=== PATIENT | male | born 1970 | race Two or more races ===

== ENCOUNTER 2020-11-29 19:39 | Emergency (ER) | payer OTHER, SELFPAY ==
--- NOTE | ~2020-11-29 | XR_ITS ---
EXAMINATION: XR FINGER, LEFT CLINICAL INFORMATION: Avulsion COMPARISON: None TECHNIQUE: 3 views of the left fifth digit. FINDINGS: Overlying bandage material obscures soft tissue detail. The bony structures appear to be intact with no evidence for acute fracture or dislocation. Old healed fracture of the distal fifth metacarpal incidentally noted. No radiopaque foreign body appreciated. XR/XR finger LT min 2V IMPRESSION: Dense bandage material overlying the distal aspect of the fifth digit. Underlying bony structures appear grossly intact.
[2020-11-29 20:14] VITALS: BP 136/75; PULSE 80; RESP 18; TEMP 36.4; O2SAT 98; BMI 36.9
--- NOTE | 2020-11-29 21:14 | ED.WOUNDLAC ---
HPI - Wound/Laceration General Chief Complaint: Wound/Laceration Stated Complaint: FINGER LAC Source: patient Mode of arrival: ambulatory Limitations: no limitations History of Present Illness HPI narrative: 50-year-old male with no significant past medical history presents with avulsion of the left 5th finger. Patient got his finger slammed in a door at work. He is able to move the extremity, and denies any other injury at this time. Onset (ago): hour(s) (Within the hour of arrival) Place: work Patient tetanus UTD: No Context: accidental Associated symptoms: pain and loss of feeling/numbness Treatments prior to arrival: bandage and tourniquet Related Data Previous Rx's Medication Instructions Recorded amoxicillin-pot clavulanate 1 tab PO Q12H 10 Days #20 tab 11/29/20 [Augmentin] hydrocodone-acetaminophen 1 tab PO Q8H PRN #14 tab 11/29/20 Allergies Allergy/AdvReac Type Severity Reaction Status Date / Time No Known Allergies Allergy Verified 11/29/20 20:14 Review of Systems Review of Systems: Constitutional: No Fever, No Chills ENT/Mouth: No Ear Pain, No Hoarseness, No sore throat Eyes: No Eye Pain, No Swelling, No Redness, No Foreign Body Cardiovascular: No Chest Pain, No SOB Respiratory: No Cough, No Dyspnea Gastrointestinal: No Nausea, No Vomiting, No Diarrhea, No abdominal Pain Genitourinary: No Dysuria, No Hematuria Musculoskeletal: positive left 5th finger pain, No Myalgias, No Joint Swelling Skin: Positive avulsion of the left 5th finger, No rash Neuro: No Weakness, No Numbness, No Paresthesias, No Loss of Consciousness, No Dizziness, No Headache Psych: No Anxiety/Panic, No Depression Heme/Lymph: no easy bruising, no Lymphadenopathy Endocrine: No Polyuria, No Polydipsia Yes all other systems are reviewed and are negative [facility] Past Medical History Attestation statement: The following information was validated with the patient. Source: old records reviewed Medical History Bradycardia Club foot Hernia Tussive syncope Social History Social History Advance Directives: No Advance Directives Information Provided: Yes Physical Exam Vital Signs: Vital Signs: Last Vital Signs Temp 97.6 F 11/29/20 20:14 Pulse 80 11/29/20 20:14 Resp 18 11/29/20 20:14 BP 136/75 11/29/20 20:14 Pulse Ox 98 11/29/20 20:14 Body Mass Index 36.9 Appearance: Alert. Oriented X3. No acute distress. Eyes: Pupils equal, round and reactive to light. ENT: Pharynx normal. Neck: Normal inspection. Neck supple. CVS: Normal heart rate and rhythm. Pulses normal. Respiratory: No respiratory distress. Breath sounds normal. Abdomen: Soft and nontender. Skin: Skin warm and dry. Normal skin color. Normal skin turgor. Extremities: Positive avulsion to the left 5th finger. Neuro: No motor deficit. No sensory deficit. Course Course Course Narrative: 50-year-old male with no significant past medical history presents with avulsion to the left 5th finger tip. Patient got his finger slammed into a door, and ripped the lateral last pad of the 5th digit of the left hand. X-rays are negative for bone involvement, we did give Ancef 1.5 g. Tdap updated today. Patient does have full range of motion to the rest of the digit. Has no sensation to the tip of the finger. Please see procedure note for digital block. Flushed with copious amounts of sterile saline. Finger tourniquet used to prevent bleeding. No blood loss. I am unable to approximate the wound margins, applied Xeroform and advised patient to follow up with work connection in 3 days for wound care. Patient verbalized understanding of and agrees to plan of care discharge home. Procedures Laceration Laceration 1: Side (If applicable): left Amount of anesthesia used (mL): 4 Nerve Block Nerve Block 1: Time out performed: Yes Local Anesthetic: lidocaine 2% Amount of anesthesia used (mL): 4 Side: left Nerve Blocks: digital Procedure Successful: Yes Patient Tolerated Procedure: well and no complications Complications: none Additional Comments: Prepped and draped in sterile fashion, irrigated with copious amounts of sterile saline. Patient tolerated procedure well. Dressed with Xeroform, sterile gauze and Jarrod wrap. MDM - Wound/Laceration Medical Records Attestation: I reviewed the patient's medical records. Imaging Data Left hand x-ray: Attestation: I personally reviewed and interpreted this imaging study as follows: Radiologist's impression: EXAMINATION: XR FINGER, LEFT CLINICAL INFORMATION: Avulsion COMPARISON: None TECHNIQUE: 3 views of the left fifth digit. FINDINGS: Overlying bandage material obscures soft tissue detail. The bony structures appear to be intact with no evidence for acute fracture or dislocation. Old healed fracture of the distal fifth metacarpal incidentally noted. No radiopaque foreign body appreciated. XR/XR finger LT min 2V IMPRESSION: Dense bandage material overlying the distal aspect of the fifth digit. Underlying bony structures appear grossly intact. Discharge Plan Discharge Clinical Impression: Avulsion of skin Patient Disposition: Home, Self-Care Instructions: Skin Avulsion (ED) Additional Instructions: You were evaluated for a significant skin avulsion to the left 5th digit. You must follow up with work connection in 3 days for wound assessment. This wound may take several weeks to heal. Do not soak the wound in water, keep the wound dressed at all times, please take antibiotics Augmentin as directed. Finish the entire course of this medication. We prescribed Vicodin for this injury. This medication is a narcotic and has high risk for addiction and abuse. Do not drive or operate machinery while taking this medication. Use Colace and/or MiraLax to help loosen stools as this medication is constipating. Thank you for choosing this emergency department for evaluation. Please follow-up with primary care physician as needed. Return to the emergency department for any new, concerning, or worsening symptoms. Prescriptions: New hydrocodone-acetaminophen 5-325 mg tablet 1 tab PO Q8H PRN (Reason: pain) Qty: 14 RF: 0 amoxicillin-pot clavulanate [Augmentin] 875-125 mg tablet 1 tab PO Q12H 10 Days Qty: 20 RF: 0 Referrals: [facility] [Provider Group] - 2 days (Wound check) Stand Alone Forms: Work/School Release Interventions: ED Discharge Assessment Last Done: 11/29/20 23:25 Discharge Date/Time: 11/29/20 23:31 Print Language: Yakut
[2020-11-29] MEDS: Diphth,Pertus(ACell),Tet Adult 0.5 ML SYRINGE IM (21:46)
[2020-11-29] MEDS: Lidocaine HCl 2 % MPF 5 ML VIAL SUBCUT (21:48)
[2020-11-29] MEDS: ceFAZolin Sodium 1.5 GM in 0.9 % Sodium Chloride 100 ML IV (22:38)
== END 2020-11-29 23:31 | disposition home or self-care (01) ==
PROVIDERS: Emergency Provider Emergency Medicine; PCP Internal Medicine
DX: S61.217A Laceration without foreign body of left little finger without damage to nail, initial encounter (principal); W23.1XXA Caught, crushed, jammed, or pinched between stationary objects, initial encounter; Y93.89 Activity, other specified; Y92.812 Truck as the place of occurrence of the external cause; Y99.0 Civilian activity done for income or pay
CPT/HCPCS: 12001; 64450; 73140; 90471; 90715; 96365; 99283; 99284; J0690

== ENCOUNTER → 2020-12-01 11:23 | Outpatient (BNVA) | payer OTHER, SELFPAY | PROVIDERS: PCP Internal Medicine; Visit Provider Physician Assistant Medical | DX: S61.307A Unspecified open wound of left little finger with damage to nail, initial encounter (principal); X58.XXXA Exposure to other specified factors, initial encounter | CPT/HCPCS: 99203 ==

== ENCOUNTER → 2020-12-05 10:55 | Outpatient (BNVA) | payer OTHER, SELFPAY | PROVIDERS: PCP Internal Medicine; Visit Provider Physician Assistant | DX: S61.307A Unspecified open wound of left little finger with damage to nail, initial encounter (principal); S61.337A Puncture wound without foreign body of left little finger with damage to nail, initial encounter; W23.0XXA Caught, crushed, jammed, or pinched between moving objects, initial encounter | CPT/HCPCS: 99202; 99214 ==

== ENCOUNTER 2020-12-07 13:38 | Outpatient (RCR) | payer OTHER, SELFPAY | END 2021-01-04 13:23 | disposition home or self-care (01) | LOC: HO.WCC 13:38 | PROVIDERS: Visit Provider Surgery | DX: S61.207D Unspecified open wound of left little finger without damage to nail, subsequent encounter (principal) | CPT/HCPCS: 99212 ==

== ENCOUNTER 2020-12-11 23:39 | Emergency (ER) | payer OTHER, SELFPAY ==
[2020-12-11 23:50] VITALS: BP 141/87; PULSE 62; RESP 17; TEMP 37; O2SAT 98; BMI 36.9
--- NOTE | 2020-12-12 00:09 | ED_ITS ---
HPI - Wound/Laceration General Chief Complaint: Wound/Laceration Stated Complaint: Wound check Time Seen by Provider: 12/12/20 00:02 Source: patient Mode of arrival: ambulatory Limitations: no limitations History of Present Illness HPI narrative: Patient has left 5th finger tip avulsion on 11/29 seen orthopedics on Augmentin comes here for a wound recheck no pus discharge no fever still complaining of pain on hydrocodone and ibuprofen Related Data Previous Rx's Medication Instructions Recorded amoxicillin-pot clavulanate 1 tab PO Q12H 10 Days #20 tab 11/29/20 [Augmentin] hydrocodone-acetaminophen 1 tab PO Q8H PRN #14 tab 11/29/20 Allergies Allergy/AdvReac Type Severity Reaction Status Date / Time No Known Allergies Allergy Verified 12/12/20 00:00 Review of Systems Review of Systems: Yes all other systems are reviewed and are negative PMFSH Past Medical History Medical History Bradycardia Club foot Hernia Tussive syncope Social History Social History Patient Tobacco Use Status: Current everyday Tobacco user Use of substances other than those prescribed or required for medical reasons: No Advance Directives: No Advance Directives Information Provided: No Current occupational status: employed 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 Healing tip of the left 5th finger with granulation tissue no pus discharge noted him a good range of movement and sensation MDM - Wound/Laceration MDM Narrative Medical decision making narrative: Patient with a healing left 5th finger skin avulsion already on antibiotics will advise patient to follow with orthopedics as scheduled Discharge Plan Discharge Clinical Impression: Avulsion of skin Patient Disposition: Home, Self-Care Instructions: Skin Avulsion (ED) Additional Instructions: Continue antibiotics and pain medication local care as advised. Follow-up with hand surgeon as scheduled Prescriptions: No Action hydrocodone-acetaminophen 5-325 mg tablet 1 tab PO Q8H PRN (Reason: pain) Qty: 14 RF: 0 amoxicillin-pot clavulanate [Augmentin] 875-125 mg tablet 1 tab PO Q12H 10 Days Qty: 20 RF: 0
== END 2020-12-12 00:45 | disposition home or self-care (01) ==
PROVIDERS: Emergency Provider Internal Medicine
DX: Z48.00 Encounter for change or removal of nonsurgical wound dressing (principal); S61.207D Unspecified open wound of left little finger without damage to nail, subsequent encounter; X58.XXXD Exposure to other specified factors, subsequent encounter
CPT/HCPCS: 99282; 99284

== ENCOUNTER → 2020-12-13 09:11 | Outpatient (BNVA) | payer OTHER, SELFPAY | PROVIDERS: Visit Provider Physician Assistant | DX: Z13.89 Encounter for screening for other disorder (principal) | CPT/HCPCS: 99212 ==

== ENCOUNTER → 2020-12-19 13:54 | Outpatient (BNVA) | payer OTHER, SELFPAY | PROVIDERS: Visit Provider Orthopaedic Surgery | DX: S61.207A Unspecified open wound of left little finger without damage to nail, initial encounter (principal) | CPT/HCPCS: 99212 ==

== ENCOUNTER → 2021-01-02 08:40 | Outpatient (BNVA) | payer OTHER, SELFPAY | PROVIDERS: Visit Provider Orthopaedic Surgery | DX: S61.207D Unspecified open wound of left little finger without damage to nail, subsequent encounter (principal) | CPT/HCPCS: 99212 ==

== ENCOUNTER → 2021-01-17 13:16 | Outpatient (BNVA) | payer OTHER, SELFPAY | PROVIDERS: Visit Provider Physician Assistant | DX: S61.207D Unspecified open wound of left little finger without damage to nail, subsequent encounter (principal) | CPT/HCPCS: 99212 ==

== ENCOUNTER → 2021-02-06 13:09 | Outpatient (BNVA) | payer OTHER, SELFPAY | PROVIDERS: PCP Plastic Surgery; Visit Provider Physician Assistant | DX: S61.207D Unspecified open wound of left little finger without damage to nail, subsequent encounter (principal) | CPT/HCPCS: 99212 ==

== ENCOUNTER 2021-03-08 11:30 | Outpatient (RCR) | payer OTHER, SELFPAY ==
--- NOTE | 2021-03-01 13:26 | MHC.OT.OEV ---
[address] [phone] F: [phone] Occupational Therapy Evaluation Diagnosis: OPEN WOUND ON LEFT LITTLE FINGER Date of Onset: 11/29/20 Attending Provider: Ramona Chow Prescribed Treatment: RONAK GIBSON Follow Up Appointment: 03/21/21 History of Current Condition: 50-year-old male presented to ER with avulsion to the left 5th finger tip. Patient got his finger slammed into a door, and ripped the lateral last pad of the 5th digit of the left hand. x-rays are negative for bone involvement. Skin graft not performed. 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 HAS PAIN WITH LIGHT OR NOXIOUS TOUCH. Sleep: MODERATE DIFFICULTIES WITH SLEEPING INCLUDING TROUBLE FALLING ASLEEP AND WAKES AT NIGHT Driving: SEVERE DIFFICULTIES WITH DRIVING, BUMP FINGER ON STEERING WHEEL Pain Assessment Pain Score: 6-10/10 Pain Scale Used: Numeric (0 - 10) Pain Location and Description: 6/10 AT REST 10/10 WITH GRIPPING, BUMPING SMALL FINGER DISTAL TIP OF L D5 Aggravating Factors: EXTREME HEAT AND COLD, LIGHT TOUCH, NOXIOUS TOUCH Alleviating Factors: IBUPROFEN Skin and Soft Tissue Assessment Skin and Soft Tissue: Wound Scar Tissue Comments: HEALED WOUND TO DISTAL SMALL FINGER WITH SCAR TISSUE Sensory Assessment Temperature: Left Impaired Light Touch: Left Impaired Proprioception: Vibration: Comments: SEMMES GIO DIMINISHED PROTECTIVE SENSATION TO DISTAL ASPECT TO DIPj OF L SMALL FINGER SOME INCONSISTENCIES WITH TESTING WITH EYES OCCLUDED, CONTINUE TO ASSESS AT F/U SESSIONS Edema Assessment Upper Extremity: WNL Lower Extremity: Comments: CIRCUMFERENCE OF DIPj OF SMALL FINGER LEFT: 5.0 CM, RIGHT 5.3 CM Dexterity Assessment Dexterity: WFL Comments: FUNCTIONAL DEXTERITY TEST LEFT 30 SECONDS, RIGHT 25 SECONDS Special Tests Comments: AROM(PROM) Strength Elbow Flexion: Extension: Pronation: Supination: Comments: WNL Flexion: Extension: Pronation: Supination: Comments: Wrist Flexion: Extension: Ulnar Deviation: Radial Deviation: Comments: WNL Flexion: Extension: Ulnar Deviation: Radial Deviation: Comments: Thumb Thumb CMC Flexion: Thumb MCP Flexion: Thumb IP Flexion: Radial Abduction: Palmar Abduction: [place] (Kapandji 0-10): 10 Comments: Digits Index MCP: PIP: DIP: Long MCP: PIP: DIP: Ring MCP: PIP: DIP: Small MCP: L 66, R 68 PIP: L 88, R 100 DIP: L 30, R 78 Comments: FULL EXTENSION IN DIPj Gross Grasp: L 60, R 110 Lateral Pinch: L 25, R 27 Two-Point Pinch: Three-Jaw Mason: Comments: GUARDING OF L SF WITH SHIPPING/RECEIVING CLERK TESTING Patient Education 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 Patient demonstrates Patient verbalizes Barriers to Learning: None Readiness for Learning: Accepting Who was educated? Patient Family/spouse Comments: Plan of Care Assessment: TAMIKO IS 13 WEEKS S/P PARTIAL DEGLOVING INJURY TO HIS LEFT SMALL FINGER. WOUND IS NOW CLOSED AND HE IS PRESENTING WITH PAIN, ROM, STRENGTH AND SENSORY LIMITATIONS. HE STATES THERE IS PAIN WITH LIGHT TOUCH AND WITH GRIPPING TASKS. 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 PATIENT WOULD BENEFIT FROM ONGOING OT TO ADDRESS AREAS MENTIONED ABOVE AND ASSESS FOR SPLINTING OPTIONS TO PROTECT DISTAL DIGIT FROM BUMPING INTO OBJECTS. STG Duration: 2 WEEKS Short Term Goals: IND HEP REPORT <4/10 PAIN AT REST AND WITH LIGHT IADLs WILL TOLERATE 10 MINS OF LIGHT TOUCH IND DESENSITIZATION STRATEGIES INCORPORATE L SF INTO DAILY ACTIVITIES WITHOUT DIFFICULTIES IND SCAR MOBILIZATION LTG Duration: 4 WEEKS Half-Way Goals: WILL TOLERATE 20 MINS OF TAPPING, DEEP TOUCH WILL LIFT >20 POUNDS WITH <4/10 PAIN USING ADAPTIVE TECHNIQUES AND PROPER BODY MECHANICS QUICK DASH <50% SHIPPING/RECEIVING CLERK STRENGTH >80 POUNDS TIP TO DPC <0.5 CM Frequency and Duration: The patient will be seen 2X/ WEEK FOR 4 WEEKS Treatment Plan: Therapeutic Exercise Therapeutic Activity Home Exercise Program Splinting Neuro Re-ed Patient Education Desensitization/Sensory Re-ed Edema Control ADL Training Ultrasound NMES Iontophoresis Paraffin Fluidotherapy MHP Cold Packs Joint Mobilization Soft Tissue Mobilization Kinesiotaping Other (see comments) Electronically Signed By: HERNANDO LUBIN/Silvio Reviewed/agree with student documentation: N/A Therapist: Please sign and return to therapist, Thank you for your referral.
--- NOTE | 2021-04-25 10:14 | MHC.OT.DC ---
[address] [phone] F: [phone] Occupational Therapy Discharge Note Provider: Ramona Chow Diagnosis: OPEN WOUND ON LEFT LITTLE FINGER Date of Evaluation: 03/01/21 Date of Discharge: 04/25/21 Treatments to Date: 2 Cancellations to Date: 4 No Shows to Date: 3 Discharge Summary: MR MCBRIDE WAS SEEN FOR TWO OUTPATIENT OT SESSIONS. AT HIS LAST APPOINTMENT HE CONT TO EXPERIENCE HYPERSENSATIVITY AND VOLAR SCAR ADHESIONS. HE HAD GOOD UNDERSTANDING OF HIS HEP, ALTHOUGH HE REMAINED GUARDED. THERE HAS BEEN A SIX (+) WEEK LAPSE IN HIS OT SESSIONS (Pt CONTRACTED COVID 19) AND WILL NEED A NEW SCRIPT FOR ADDITIONAL VISITS. D/C OT SERVICES. Electronically Signed By: MARI BROOKS OTR/L Reviewed/agree with student documentation: N/A Therapist: Please Sign and return to therapist, thank you for your referral.
== END 2021-04-25 10:10 | disposition home or self-care (01) ==
LOC: HO.OT 11:30
PROVIDERS: PCP Nurse Practitioner Primary Care; Visit Provider Physician Assistant
DX: S61.207A Unspecified open wound of left little finger without damage to nail, initial encounter (principal)
CPT/HCPCS: 97110; 97112; 97166

== ENCOUNTER 2021-03-09 19:59 | Emergency (ER) | payer OTHER, SELFPAY ==
[2021-03-09 20:06] VITALS: BP 138/84; PULSE 73; RESP 16; TEMP 36.9; O2SAT 98; BMI 38.4
[2021-03-09 21:23] LABS: Influenza A PCR NEGATIVE (Negative); Influenza B PCR NEGATIVE (Negative); Resp Syncy Virus RNA Qual PCR NEGATIVE (Negative); SARS COV2 PCR INHOUSE NEGATIVE (Negative)
--- NOTE | 2021-03-09 21:30 | ED.URI ---
HPI - URI/Sore Throat General Chief Complaint: Upper Respiratory Symptoms Stated Complaint: covid exposed - cough Time Seen by Provider: 03/09/21 21:30 Source: patient Mode of arrival: ambulatory Limitations: no limitations History of Present Illness HPI Narrative: Patient is a 50-year-old male with no significant past medical history who is here because he had a COVID exposure, his daughter was diagnosed a few days ago. He denies any symptoms except for some mild nausea which he attributes to some new medications he is taking. He is not vaccinated for COVID. He denies any cough, congestion, nausea, vomiting, diarrhea, fevers. He states he has been eating and drinking his normal amount. Related Data Home Medications Medication Instructions Recorded Confirmed ibuprofen 800 mg tablet mg PO 12/19/20 Previous Rx's Medication Instructions Recorded amoxicillin 875 mg-potassium 1 tab PO Q12H 10 Days #20 tab 11/29/20 clavulanate 125 mg tablet (Augmentin) hydrocodone 5 mg-acetaminophen 325 1 tab PO Q8H PRN #14 tab 12/13/20 mg tablet Allergies Allergy/AdvReac Type Severity Reaction Status Date / Time No Known Allergies Allergy Verified 01/02/21 09:06 Review of Systems Review of Systems: Yes all other systems are reviewed and are negative [facility] Past Medical History Medical History Bradycardia Club foot Hernia Tussive syncope Social History Social History Patient Tobacco Use Status: Current everyday Tobacco user Advance Directives: No Advance Directives Information Provided: No Current occupational status: employed 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 Physical Exam Vital Signs: Vital Signs: Last Vital Signs Temp 98.4 F 03/09/21 20:06 Pulse 73 03/09/21 20:06 Resp 16 03/09/21 20:06 BP 138/84 03/09/21 20:06 Pulse Ox 98 03/09/21 20:06 Body Mass Index 38.4 Const: General: cooperative, healthy appearing, comfortable, no acute distress and well developed Orientation/consciousness: patient oriented x3 Limitations: no limitations HENMT: Head: Yes normal to inspection Eyes: General: appearance normal, both eyes and all related structures Neck: Neck: Yes normal visual inspection and Yes full ROM Resp: Effort & Inspection: normal respiratory effort and able to speak in complete sentences Auscultation: clear to auscultation bilaterally Cardio: Rate: regular rate Rhythm: regular rhythm Heart sounds: normal S1 and S2 GI: Inspection: Yes normal to inspection Palpation (GI): Soft to palpation and nontender Skin: General skin exam: no rashes or lesions noted Neuro: General: patient oriented x3 Extrem: General: Yes normal to inspection MDM - URI/Sore Throat Lab Data Attestation: I reviewed the patient's lab results. Labs: Lab Results 03/09/21 Range/Units 20:22 Coronavirus (PCR) NEGATIVE (Negative) Influenza Type A (PCR) NEGATIVE (Negative) Influenza Type B (PCR) NEGATIVE (Negative) RSV RNA Qual (PCR) NEGATIVE (Negative) Discharge Plan Discharge Clinical Impression: At increased risk of exposure to COVID-19 virus Patient Disposition: Home, Self-Care Instructions: COVID-19 (Coronavirus Disease 2019) (ED) Additional Instructions: Today, your COVID test was negative. However, since the rest of your family have all tested positive, you will likely become positive so I would like you to quarantine until you can get 1 more negative test in 5 days. I have attached information on how to care for yourself if you do test positive for COVID. If you experience any shortness of breath, chest pain, please return to the emergency department or call 911. If you do not end up testing positive for COVID in the next 5-7 days, please be sure to get your COVID vaccination as soon as possible. Prescriptions: No Action amoxicillin-pot clavulanate [Augmentin] 875-125 mg tablet 1 tab PO Q12H 10 Days Qty: 20 RF: 0 hydrocodone-acetaminophen 5-325 mg tablet 1 tab PO Q8H PRN (Reason: pain) Qty: 14 RF: 0 ibuprofen 800 mg tablet PO RF: 0 Interventions: ED Discharge Assessment Last Done: 03/09/21 22:00 Discharge Date/Time: 03/09/21 22:00
== END 2021-03-09 22:00 | disposition home or self-care (01) ==
PROVIDERS: Emergency Provider Emergency Medicine; PCP Internal Medicine
DX: Z20.822 Contact with and (suspected) exposure to COVID-19 (principal)
CPT/HCPCS: 0241U; 36415; 99283

== ENCOUNTER 2021-03-17 14:32 | Outpatient (REF) | payer OTHER, SELFPAY ==
[2021-03-17 14:56] LABS: COVID-19 Test Positive (Negative)
== END 2021-03-17 14:33 | disposition home or self-care (01) ==
LOC: HO.LAB 14:32
PROVIDERS: PCP Internal Medicine; Visit Provider Internal Medicine
DX: Z20.822 Contact with and (suspected) exposure to COVID-19 (principal)
CPT/HCPCS: 36415; 87635; C9803

== ENCOUNTER 2021-03-31 12:25 | Outpatient (REF) | payer OTHER, SELFPAY | END 2021-03-31 12:26 | disposition home or self-care (01) | LOC: HO.LAB 12:25 | PROVIDERS: PCP Internal Medicine; Visit Provider Internal Medicine | DX: Z20.822 Contact with and (suspected) exposure to COVID-19 (principal) | CPT/HCPCS: C9803; U0003; U0005 ==

== ENCOUNTER → 2021-04-17 10:44 | Outpatient (BNVA) | payer OTHER, SELFPAY | PROVIDERS: PCP Internal Medicine; Visit Provider Physician Assistant | DX: S61.207D Unspecified open wound of left little finger without damage to nail, subsequent encounter (principal) | CPT/HCPCS: 99212 ==

== ENCOUNTER → 2021-05-02 09:35 | Outpatient (BNVA) | payer OTHER, SELFPAY | PROVIDERS: PCP Internal Medicine; Visit Provider Orthopaedic Surgery | DX: S61.207D Unspecified open wound of left little finger without damage to nail, subsequent encounter (principal) | CPT/HCPCS: 99212 ==

== ENCOUNTER 2021-06-13 09:39 | Outpatient (REF) | payer OTHER, SELFPAY ==
[2021-06-13 11:39] LABS: COVID-19 Test Negative (Negative)
== END 2021-06-13 09:40 | disposition home or self-care (01) ==
LOC: HO.LAB 09:39
PROVIDERS: Internal Medicine; PCP Internal Medicine; Visit Provider Orthopaedic Surgery
DX: Z20.822 Contact with and (suspected) exposure to COVID-19 (principal); S61.207A Unspecified open wound of left little finger without damage to nail, initial encounter; T78.40XA Allergy, unspecified, initial encounter
CPT/HCPCS: 36415; 87635; 99212; C9803

== ENCOUNTER 2021-07-12 01:35 | Emergency (ER) | payer OTHER, SELFPAY ==
[2021-07-12 01:42] VITALS: BP 152/76; PULSE 86; RESP 14; TEMP 36.9; O2SAT 95; BMI 38.4
[2021-07-12 04:24] LABS: Strep A Nucleic Acid Negative (Negative)
--- NOTE | 2021-07-12 04:24 | ED_ITS ---
HPI - General Adult General Chief complaint: General Medical Stated complaint: lump on neck Time Seen by Provider: 07/12/21 01:55 Source: patient Mode of arrival: ambulatory History of Present Illness HPI narrative: 50-year-old male, nonsmoker presents with complaints of right- sided neck discomfort when swallowing this started a 4 days ago and has not been associated with fever, chills, ear pain, difficulty breathing, chest pain/palpitations. Patient denies any dental pain. Related Data Home Medications Medication Instructions Recorded Confirmed ibuprofen 800 mg tablet mg PO 12/19/20 Previous Rx's Medication Instructions Recorded amoxicillin 875 mg-potassium 1 tab PO Q12H 10 Days #20 tab 11/29/20 clavulanate 125 mg tablet (Augmentin) hydrocodone 5 mg-acetaminophen 325 1 tab PO Q8H PRN #14 tab 12/13/20 mg tablet Allergies Allergy/AdvReac Type Severity Reaction Status Date / Time No Known Allergies Allergy Verified 04/17/21 10:54 Review of Systems Review of Systems: Pertinent positives and negatives as stated in HPI 10 point review of systems is otherwise negative. 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 GENERAL: Well developed, well nourished, in no acute distress. HEAD: Normocephalic/atraumatic EYES: PERRLA, EOMI EARS: Ext canals without abnormality, TMs non-bulging and non-erythematous NOSE: Nares patent bilateral OROPHARYNX: no oral lesions noted, posterior pharynx clear and non-erythematous without noted tonsillar enlargement/erythema/exudates, uvula is midline and there is no unilateral tonsillar pillar elevation NECK: Supple, no adenopathy, but pain at right submental on palpation LUNGS: Normal breath sounds. No adventitious sounds or accessory muscle use. SpO2<95> CARDIOVASCULAR: Regular rate and rhythm without noted murmurs, no JVD or lower extremity edema. ABDOMEN: Soft, non-tender, non-distended with bowel sounds. SKIN: Inspection of the skin reveals no rashes NEUROLOGIC: Alert and oriented x 4. Course Course Course Narrative: 50-year-old male with history and clinical presentation consistent with possible adenopathy suspect that this is viral in nature but will COVID as well as strep test him there is no airway issue and no stridor, patient is afebrile and oxygenating well on room air. Review of all investigations otherwise negative for acute findings. Suspect that patient has viral adenopathy and he was encouraged to take myhg-bua-wplcyxk medications and continue with his scheduled appointment on morning. There are no airway or esophageal concerns. Patient declined COVID testing stating that he was tested in the morning and was negative at that time and he denies being COVID-19 vaccinated. Medical Decision Making Lab Data Labs: Lab Results 07/12/21 Range/Units 04:09 S. pyogenes GrpA CHRIS Negative (Negative) Discharge Plan Discharge Clinical Impression: Adenopathy Patient Disposition: Home, Self-Care Instructions: Lymphadenopathy (ED) Additional Instructions: 1. Keep your scheduled appointment on . 2. Recommend taking [id number]-[id number] Tylenol/ibuprofen as needed for symptom relief and this is felt to primarily be viral in nature and should gradually resolve. Return to the ER for worsening symptoms. Prescriptions: No Action amoxicillin-pot clavulanate [Augmentin] 875-125 mg tablet 1 tab PO Q12H 10 Days Qty: 20 RF: 0 hydrocodone-acetaminophen 5-325 mg tablet 1 tab PO Q8H PRN (Reason: pain) Qty: 14 RF: 0 ibuprofen 800 mg tablet PO RF: 0
--- NOTE | 2021-07-12 05:05 | PC.NURSE ---
pt refused covid swab. states that he got a covid test this morning which was negative (Ariane) aware
== END 2021-07-12 05:34 | disposition home or self-care (01) ==
PROVIDERS: Emergency Provider Student in an Organized Health Care Education/Training Program
DX: R59.9 Enlarged lymph nodes, unspecified (principal); M54.2 Cervicalgia
CPT/HCPCS: 36415; 87651; 99283

== ENCOUNTER 2021-07-24 11:30 | Outpatient (RCR) | payer OTHER, SELFPAY ==
--- NOTE | 2021-05-15 13:56 | MHC.OT.OEV ---
[address] [phone] F: [phone] Occupational Therapy Evaluation Diagnosis: Left small finger laceration w/ persistent hypersensitivity Date of Onset: 11/29/20 Attending Provider: Dr Nath Prescribed Treatment: Eval and Treat, desensitization training History of Current Condition: 50-year-old male with avulsion to the left 5th finger tip 11/29/20, patient got his finger slammed into a door, and ripped the lateral last pad of the 5th digit of the left hand. X-rays are negative for bone involvement. Skin graft not performed. He was seen in OT in February, had one follow up appointment, but then was diagnosed w/ Covid and cancelled all appointments. 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 Living Situation, Family and/or Social Support: Lives w/ parents, able bodied Current Level of Function and Occupation Self Care, Employment, Leisure: Out of work since injury the past May Difficulty grabbing objects with his whole hand Sleep: Difficulty getting comfortable Anxious (re: not working) Driving: Drives w/ right hand, unable to hold w/ left hand due to jostling Pain Assessment Pain Score: 3 Pain Scale Used: Numeric (0 - 10) Pain Location and Description: Left index, volar aspect, touch sensation/hypersensitivity radiates down to hyperthenar tissues Aggravating Factors: Touching most objects, sudden touch to digit Alleviating Factors: Tried ice and heat, no relief, somewhat irratible Skin and Soft Tissue Assessment Skin and Soft Tissue: Comments: Well healed small finger volar distal phalanx laceration, shiney Sensory Assessment Temperature: Left Impaired Light Touch: Left Impaired Comments: [place] left hand: thumb/thenar 2.83 volar small finger 3.61, but localization impaired (feeling volar finger on dorsal aspect) hypothenar 4.56 Edema Assessment Upper Extremity: WNL Dexterity Assessment Dexterity: Left Impaired Comments: Unable to use small finger to assist w/ FMC tasks AROM(PROM) Strength Digits Index MCP: PIP: DIP: Long MCP: PIP: DIP: Ring MCP: PIP: DIP: Small MCP: R 80 L 82 PIP: R 96 L 88 DIP: R 64 L 54 Comments: Gross Grasp: R 124 L 85 Lateral Pinch: Two-Point Pinch: Three-Jaw Mason: Comments: Patient Education Primary Language: Filipino Glue Cook Required: No Current Knowledge: Understands information with skills for self-management Teaching Method: Demonstration Handouts Phone Call Verbal Education Needs Identified on Evaluation: ADL's Disease Information Exercise Pain Safety How did patient/family demonstrate learning? Patient demonstrates Patient verbalizes Barriers to Learning: None Readiness for Learning: Accepting Who was educated? Patient Comments: Plan of Care Assessment: 50 yo male w/ history of left small finger laceration at work, November 2020. He was seen in OT in february for management of hypersensitivity of small finger, but therapy was interrupted due to Covid dx. He is now referred back to continued management of same diagnosis. On assessment, he has slightly limited small finger flexion, and decreased gross grasp, but primarily limitation is hypersensitivity of small finger and inability to tolerate touch/textures and general use of small finger. We will cont OT services w/ desensitization program. STG Duration: 1 week Short Term Goals: Ind w/ small finger ROM w/ tip-palm Pt to demo good use of small finger w/ pick-up and palm coin activity Good follow through w/ desensitization training program LTG Duration: 6 weeks Jail Goals: Gross grasp 100lb Pt to demo functional lift and carry >30lb Pt to utilize small finger protection techniques (coban wrap, gel sleeve, etc) for safe return to work/activities Frequency and Duration: The patient will be seen 2x/wk for 6 weeks Treatment Plan: Therapeutic Exercise Therapeutic Activity Home Exercise Program Neuro Re-ed Patient Education Desensitization/Sensory Re-ed ADL Training Fluidotherapy Soft Tissue Mobilization Mirror therapy Electronically Signed By: Ladonna Strong OTR/L Reviewed/agree with student documentation: N/A Therapist: Please sign and return to therapist, Thank you for your referral.
--- NOTE | 2021-07-24 14:24 | MHC.OT.DC ---
[address] [phone] F: [phone] Occupational Therapy Discharge Note Provider: Jackie Nath Diagnosis: Left small finger laceration w/ persistent hypersensitivity Date of Evaluation: 05/15/21 Date of Discharge: 07/24/21 Treatments to Date: 8 Cancellations to Date: 6 No Shows to Date: 2 Discharge Status: Achieved Goals Improved Function Discharge Summary: MR [facility] HAS MET HIS GOALS. HE CONTINUES TO C/O SENSITIVITY AT DISTAL SF YET IS IND WITH PROTECTION TECHNIQUES AND DESENSITIZATION STRATEGIES. INCREASED TIME SPENT ON PATIENT EDUCATION AND WORK MODIFICATION STRATEGIES. WILL TRANSITION Pt TO A HOME BASED PROGRAM AND F/U WITH MD NEEDED. Electronically Signed By: MARI BROOKS OTR/L Reviewed/agree with student documentation: N/A Therapist: Please Sign and return to therapist, thank you for your referral.
== END 2021-07-24 14:35 | disposition home or self-care (01) ==
LOC: HO.OT 11:30
PROVIDERS: Visit Provider Orthopaedic Surgery
DX: S61.207D Unspecified open wound of left little finger without damage to nail, subsequent encounter (principal)
CPT/HCPCS: 97110; 97112; 97165; 97530

== ENCOUNTER 2021-08-08 11:54 | Outpatient (REF) | payer OTHER, SELFPAY ==
--- NOTE | ~2021-08-08 | XR_ITS ---
EXAMINATION: XR HAND, LEFT CLINICAL INFORMATION: Pain left hand. COMPARISON: Left finger 11/29/2020 TECHNIQUE: PA, lateral, and oblique views of the left hand. FINDINGS: There is an oblique distal fifth metacarpal old healed fractures with callus formation. No acute fracture, dislocation or lytic process seen. The joint space is maintained normal. The soft tissues are normal. XR/XR hand LT min 3V IMPRESSION: No acute fracture, dislocation. Old healed distal fifth metacarpal fracture. The soft tissues are unremarkable.
== END 2021-08-08 11:55 | disposition home or self-care (01) ==
LOC: HO.HOSX 11:54
PROVIDERS: Visit Provider Orthopaedic Surgery
DX: S61.207A Unspecified open wound of left little finger without damage to nail, initial encounter (principal); T78.40XA Allergy, unspecified, initial encounter
CPT/HCPCS: 73130; 99212

== ENCOUNTER → 2021-08-29 13:56 | Outpatient (BNVA) | payer OTHER, SELFPAY | PROVIDERS: Visit Provider Orthopaedic Surgery | DX: S61.207D Unspecified open wound of left little finger without damage to nail, subsequent encounter (principal); T78.40XD Allergy, unspecified, subsequent encounter | CPT/HCPCS: 99212 ==

== ENCOUNTER → 2021-09-19 09:10 | Outpatient (BNVA) | payer OTHER, SELFPAY | PROVIDERS: Visit Provider Orthopaedic Surgery ==

== ENCOUNTER → 2021-10-31 12:13 | Outpatient (BNVA) | payer OTHER, SELFPAY | PROVIDERS: Visit Provider Orthopaedic Surgery | DX: M79.645 Pain in left finger(s) (principal); G58.8 Other specified mononeuropathies; S61.207D Unspecified open wound of left little finger without damage to nail, subsequent encounter | CPT/HCPCS: 99212 ==

== ENCOUNTER 2021-11-06 06:27 | Day surgery (SDC) | payer OTHER, SELFPAY ==
[2021-10-31 09:35] VITALS: BMI 38.4
[2021-11-06 06:56] VITALS: BP 150/96; PULSE 57; RESP 16; TEMP 36.8; O2SAT 98
--- NOTE | 2021-11-06 07:09 | HO.ANESPROP2 ---
[facility] Active Problems Active Problems: All Active Problems (Updated 10/31/21 @ 09:31 by Mary Anne Zamudio RN) Open wound of left little finger (Acute) At increased risk of exposure to COVID-19 virus (Acute) Hypersensitivity (Acute) Neuroma digital nerve (Acute) Pain in left finger(s) (Acute) Past Medical History Medical History Bradycardia Club foot Congenital single kidney Hernia History of COVID-19 Tussive syncope Family History Family history of problems with anesthesia: No Surgical History Surgical History Surgical history unknown History of Problems with Anesthesia: No Social History Social History Patient Tobacco Use Status: Current everyday Tobacco user Tobacco use type: Cigarette Cigarettes Per Day: 5 Advance Directives: No Advance Directives Information Provided: Yes Advance Directives on File: No Current occupational status: employed 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 Meds Allergies Allergy/AdvReac Type Severity Reaction Status Date / Time No Known Allergies Allergy Verified 09/19/21 09:16 Active Medications: Current Medications Cefazolin Sodium/Dextrose (Ancef) 2 gm in 50 mls @ 100 mls/hr IV PREOP ONE Stop: 11/06/21 07:29 Home Medications Medication Instructions Recorded Confirmed Last Taken Type ibuprofen 800 mg tablet mg PO 12/19/20 Unknown History Exam Exam Date and Time: November 06, 2021 0709 Height,Weight and Vital Signs: Height 5 ft 9 in Weight 117.934 kg Last Vital Signs Temp 98.2 F 11/06/21 06:56 Pulse 57 11/06/21 06:56 Resp 16 11/06/21 06:56 BP 150/96 H 11/06/21 06:56 Pulse Ox 98 11/06/21 06:56 Airway Mallampati Class: III TM Dist: >3cm Neck ROM: Full Assessment and Plan Assessment Anesthesia Assessment: Anesthesia Plan Discussed, Smoking Cess. Discussed and Chart Reviewed Final Anesthetic Review Family History of Problems with Anesthesia: No History of Problems with Anesthesia: No NPO: Yes ASA Class: III Final Preanesthetic Review: No Changes in Pt Med Stat, Meds/Allgs Chart Reviewed, Consent Obtained/Reviewed and Anes Risks/Benef Reviewed Patient Risk: Intermediate Procedure Risk: Low Anesthetic Plan Anesthetic Plan: GA Disposition: Standard PACU
[2021-11-06 09:27] VITALS: BP 125/65; PULSE 63; RESP 18; TEMP 37.1; O2SAT 99
[2021-11-06 09:32] VITALS: BP 136/84; PULSE 68; RESP 18; O2SAT 98
[2021-11-06 09:37] VITALS: BP 135/81; PULSE 66; RESP 18; O2SAT 98
[2021-11-06 09:42] VITALS: BP 131/78; PULSE 64; RESP 16; O2SAT 92
--- NOTE | 2021-11-06 09:46 | MHC.SHP ---
Pre-Procedural Eval Section A Date of Service: 11/06/21 The patient is an INPATIENT: No Changes since office visit: No Cold of Flu in the past 2 weeks, No New Medical Problems, No Changes in Medication and No Patient answered all questions The History & Physical has been completed within 30 days and I have reviewed it.: Yes Section B Chief Complaint: open wound left finger,mononeuropathies Allergies: Allergies Allergy/AdvReac Type Severity Reaction Status Date / Time No Known Allergies Allergy Verified 09/19/21 09:16 Plan I have reviewed the history and physical and performed a pertinent physical examination on my patient. No changes have occurred unless specified.
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
[2021-11-06 09:57] VITALS: BP 127/72; PULSE 59; RESP 18; TEMP 36.7; O2SAT 96
== END 2021-11-06 11:21 | disposition home or self-care (01) ==
PROVIDERS: Visit Provider Orthopaedic Surgery
PROC: (CPT 64776; principal; 2021-11-06 07:30)
DX: G56.82 Other specified mononeuropathies of left upper limb (principal); L90.5 Scar conditions and fibrosis of skin; Q60.0 Renal agenesis, unilateral; R05.8 Other specified cough; F17.210 Nicotine dependence, cigarettes, uncomplicated; Z86.16 Personal history of COVID-19
CPT/HCPCS: 64776; 88305; J0690; J1100; J2250; J2405; J3010

== ENCOUNTER → 2021-11-21 10:04 | Outpatient (BNVA) | payer OTHER, SELFPAY | PROVIDERS: Visit Provider Orthopaedic Surgery | DX: S61.207D Unspecified open wound of left little finger without damage to nail, subsequent encounter (principal); G58.8 Other specified mononeuropathies; M79.645 Pain in left finger(s) | CPT/HCPCS: 99212 ==

== ENCOUNTER → 2021-11-28 11:10 | Outpatient (BNVA) | payer OTHER, SELFPAY | PROVIDERS: Visit Provider Physician Assistant | DX: S61.207D Unspecified open wound of left little finger without damage to nail, subsequent encounter (principal); G58.8 Other specified mononeuropathies; M79.645 Pain in left finger(s) | CPT/HCPCS: 99212 ==

== ENCOUNTER → 2021-11-29 14:12 | Outpatient (BNVA) | payer OTHER, SELFPAY | PROVIDERS: Visit Provider Orthopaedic Surgery | DX: S61.207D Unspecified open wound of left little finger without damage to nail, subsequent encounter (principal); G58.8 Other specified mononeuropathies | CPT/HCPCS: 99212 ==

== ENCOUNTER 2025-02-24 01:05 | Emergency (ER) | payer OTHER, SELFPAY ==
--- NOTE | 2025-02-24 | ECG_ITS ---
Test Reason : chest discomfort Blood Pressure : */* mmHG Vent. Rate : 64 BPM Atrial Rate : 64 BPM P-R Int : 204 ms QRS Dur : 108 ms QT Int : 438 ms P-R-T Axes : 49 20 43 degrees QTcB Int : 451 ms Normal sinus rhythm Normal ECG When compared with ECG of 03-Sep-2019 14:47, No significant change was found Referred By: Generic ED Physician Electronically Signed By: Mateusz Porter
--- NOTE | ~2025-02-24 | XR_ITS ---
CLINICAL HISTORY: chest pain 2 view chest x-ray. Comparison: None provided. Findings: No consolidation, pneumothorax, or effusion. Heart size normal. Impression: 1. No acute cardiopulmonary process. No focal pulmonary consolidation. This document has been electronically signed by: Jorge Alberto Stanley MD on 02/24/2025 03:46:47
[2025-02-24 01:09] VITALS: BP 158/84; PULSE 67; RESP 18; O2SAT 97; BMI 41.5
[2025-02-24 01:29] LABS: Hematocrit 39.1 % (42.0-52.0); Hemoglobin 13.2 g/dl (14.0-18.0); Imm Gran Abs Auto 0.01 X10*3/uL (0.00-0.03); Imm Gran Pct Auto 0.1 % (0.0-0.4); Lymphocytes Absolute Auto 2.2 X10*3/uL (1.2-4.9); MANUAL DIFF FLAG NO; Mean Corpuscular HGB Conc 33.8 g/dl (31.0-36.0); Mean Corpuscular Hemoglobin 32.0 pg (27.0-33.0); Mean Corpuscular Volume 94.9 fL (80.0-98.0); NRBC Abs Auto 0.000 X10*3/uL (0.0-0.012); NRBC Pct Auto 0.0 /100WBC (0.0-0.2); Platelet Count 233 X10*3/uL (160-400); Red Blood Count 4.12 X10*6/uL (4.60-5.80); White Blood Count 8.1 X10*3/uL (4.8-10.8)
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
[2025-02-24 01:44] LABS: Alanine Aminotransferase 40 U/L (0-40); Albumin Level 4.0 g/dL (3.5-5.0); Alkaline Phosphatase 86 U/L (39-117); Anion Gap 12 (12-20); Aspartate Amino Transferase 29 U/L (5-37); Blood Urea Nitrogen 13 mg/dL (9-16); Calcium 8.5 mg/dL (8.4-10.2); Carbon Dioxide 25 mmol/L (22-29); Chloride 108 mmol/L (96-108); Creatinine Clr Calc Pharmacy 91.0; Estimated Glomerular Filt Rate > 60; Potassium 3.7 mmol/L (3.3-5.1); Sodium 141 mmol/L (135-145); Total Protein 6.8 g/dL (6.5-8.0)
[2025-02-24 01:49] LABS: Troponin-I High Sensitivity 7.6 ng/L (<3.5-35.0)
[2025-02-24] MEDS: Magnesium Hydrox/Alum Hydrox 30 ML ORAL.SUSP 15 ML PO (02:57)
--- NOTE | 2025-02-24 03:35 | PC.NURSE ---
pt was medicated, resting in bed
--- NOTE | 2025-02-24 03:35 | PC.NURSE ---
pt ambulated to x-ray with a steady gait
[2025-02-24 04:06] VITALS: BP 149/86; PULSE 49; RESP 17; TEMP 37.1; O2SAT 97
[2025-02-24 04:25] LABS: D Dimer High Sensitivity 179 NG/ML
--- NOTE | 2025-02-24 05:37 | PC.NURSE ---
review discharge instructions with pt, pt verbalized understanding, no sign of distress upon discharge.
[2025-02-24 05:49] VITALS: BP 149/86; PULSE 49; RESP 17; TEMP 37.1; O2SAT 97
== END 2025-02-24 05:50 | disposition home or self-care (01) ==
PROVIDERS: Emergency Provider Emergency Medicine; PCP Internal Medicine
DX: S76.911A Strain of unspecified muscles, fascia and tendons at thigh level, right thigh, initial encounter (principal); M79.604 Pain in right leg; R07.89 Other chest pain; R42 Dizziness and giddiness; H53.8 Other visual disturbances; X58.XXXA Exposure to other specified factors, initial encounter; Y93.9 Activity, unspecified; Y92.9 Unspecified place or not applicable; Y99.8 Other external cause status
CPT/HCPCS: 36415; 71046; 80048; 80076; 84484; 85025; 85379; 93005; 99283; 99284

== ENCOUNTER → 2025-02-24 01:13 | Outpatient (BNV) | payer OTHER, SELFPAY | PROVIDERS: Emergency Provider Emergency Medicine; PCP Internal Medicine; Visit Provider Internal Medicine Cardiovascular Disease | DX: R07.9 Chest pain, unspecified (principal) | CPT/HCPCS: 93010 ==

== ENCOUNTER → 2025-02-24 02:45 | Outpatient (BNV) | payer OTHER, SELFPAY | PROVIDERS: Emergency Provider Emergency Medicine; PCP Internal Medicine; Visit Provider Radiology Diagnostic Radiology | DX: R07.9 Chest pain, unspecified (principal) | CPT/HCPCS: 71046 ==